=== PATIENT | male | born 1980 | race Caucasian/White ===

== ENCOUNTER 2017-07-19 01:59 | Emergency (ER) | payer SELFPAY ==
[2017-07-19] MEDS ORDERED: ASPIRIN 81 MG CHEWABLE TABLETS PO ONE (02:13)
--- NOTE | 2017-07-19 02:13 | PDOC ---
History of Present Illness - General History Source: Patient Exam Limitations: No Limitations - History of Present Illness Initial Comments: 07/19/17 02:31 Patient is a 36 year old male with no significant past medical history presenting to the ED with left sternal border chest pain beginning tonight. Patient reports chest pain woke him up from sleep tonight stating he has never felt anything like this before. He reports chest pain feels like a pressure on his chest. He states having SOB secondary to the chest pain. Denies radiation of pain, fever. Denies chills, nausea, vomiting. Denies smoking, excessive drinking. Denies any outside country travel. Denies any other symptoms. Social history: Family medical history; Mother- Hypercholesterolemia. <Ayaan Ricci - Last Filed: 07/19/17 05:52> - General History Source: Patient <Justo Garcia - Last Filed: 07/19/17 06:12> - General Stated Complaint: NUMBNESS TO ARM,LEG, CHEST PAIN Time Seen by Provider: 07/19/17 02:09 Past History <Ayaan Ricci - Last Filed: 07/19/17 05:52> <Justo Garcia - Last Filed: 07/19/17 06:12> - Past Medical History Allergies/Adverse Reactions: Allergies Allergy/AdvReac Type Severity Reaction Status Date / Time No Known Allergies Allergy Verified 07/19/17 02:20 Home Medications: Ambulatory Orders NK [No Known Home Medication] 07/19/17 Review of Systems - Review of Systems Able to Perform ROS?: Yes Comments:: 07/19/17 02:31 CONSTITUTIONAL: Absent: fever, no chills, no fatigue EYES: Absent: visual changes ENT: Absent: ear pain, no sore throat CARDIOVASCULAR:+Chest pain. No radiation. Absent: no palpitations RESPIRATORY: Absent: cough, no SOB GI: Absent: abdominal pain, no nausea, no vomiting, no constipation, no diarrhea GENITOURINARY: Absent: dysuria, no frequency, no hematuria MUSCULOSKELETAL: Absent: back pain, no arthralgia, no myalgia SKIN: Absent: rash All Other Systems: Reviewed and Negative <Ayaan Ricci - Last Filed: 07/19/17 05:52> *Physical Exam - Physical Exam Comments: 07/19/17 02:32 GENERAL: Mild Distress Well-appearing, well-nourished. No apparent distress. HEENT: Normocephalic, atraumatic. PERRL, EOM intact. CARDIOVASCULAR: Normal S1, S2. Regular rate and rhythm. PULMONARY: Clear to auscultation bilaterally. ABDOMEN: Soft, non-distended, non-tender. EXTREMITIES: Normal ROM in all four extremities. No gross deformities. SKIN: Warm, dry. No rash NEUROLOGICAL: No focal neurological deficits. <Ayaan Ricci - Last Filed: 07/19/17 05:52> Heart Score/ECG Review - ECG Intrepretation Comment:: 07/19/17 02:18 Normal Sinus Rhythm. Normal ECG. Normal sinus Rhythm. Early repolarization. Normal ECG <Ayaan Ricci - Last Filed: 07/19/17 05:52> ED Treatment Course - LABORATORY CBC & Chemistry Diagram: 07/19/17 02:17 07/19/17 02:17 <Ayaan Ricci - Last Filed: 07/19/17 05:52> - LABORATORY CBC & Chemistry Diagram: 07/19/17 02:17 07/19/17 02:17 <Justo Garcia - Last Filed: 07/19/17 06:12> Medical Decision Making - Medical Decision Making 07/19/17 06:11 Dr. Garcia: The scribe's documentation has been prepared under my direction and personally reviewed by me in its entirery. I confirm that the note above accurately reflects all work, treatment, procedures, and medical decision making performed by me. Cardiac enzymes 2 are negative. We'll discharge patient. <Justo Garcia - Last Filed: 07/19/17 06:12> *DC/Admit/Observation/Transfer - Attestations Scribe Attestion: 07/19/17 02:19 Documentation prepared by Ayaan Ricci, acting as medical assistant supervisor for Justo Garcia MD. <Ayaan Ricci - Last Filed: 07/19/17 05:52> - Discharge Dispostion Admit: No <Justo Garcia - Last Filed: 07/19/17 06:12> Diagnosis at time of Disposition: Chest pain Qualifiers: Chest pain type: unspecified Qualified Code(s): R07.9 - Chest pain, unspecified - Discharge Dispostion Disposition: HOME Condition at time of disposition: Stable - Referrals Referrals: Mily Salomon MD [Staff Physician] - Jon Blankenship MD [Staff Physician] - - Patient Instructions Printed Discharge Instructions: DI for Chest Pain Print Language: CHINESE - Post Discharge Activity Work/School Note: Back to Work
[2017-07-19 02:27] LABS: BASOPHIL 0.8 % (0-2.0); EOSINOPHIL 3.3 % (0-4.5); MCH 31.9 pg (25.7-33.7); MCHC 33.9 g/dl (32.0-35.9); MEAN CELL VOLUME 94.1 fl (80-96); MEAN PLT VOLUME 8.1 fl (7.5-11.1); NEUTROPHILS 42.8 % (42.8-82.8); PLATELET COUNT 255 K/MM3 (134-434); RDW 12.6 % (11.9-15.9); WHITE BLOOD COUNT 9.1 K/mm3 (4.0-10.0)
[2017-07-19 02:37] LABS: INR 1.01 (0.82-1.09); PROTHROMBIN TIME (PATIENT) 11.1 SEC (9.98-11.88)
[2017-07-19 02:46] LABS: ALBUMIN 4.3 g/dl (3.4-5.0); ANION GAP 10 (8-16); BILIRUBIN,TOTAL 0.2 mg/dL (0.2-1.0); CALCIUM 9.6 mg/dL (8.5-10.1); CO2 25 mmol/L (21-32); GLUCOSE,RANDOM 136 mg/dL (74-106); MAGNESIUM 2.1 mg/dL (1.8-2.4); SGOT/AST 16 U/L (15-37); SGPT/ALT 38 U/L (12-78); TOT PROT 7.3 g/dl (6.4-8.2)
[2017-07-19 02:49] LABS: ALK PHOS 94 U/L (45-117)
[2017-07-19 03:17] VITALS: BMI 29.0
[2017-07-19 03:27] LABS: CPK 133 IU/L (39-308); TROPONIN I < 0.02 ng/ml (0.00-0.05)
[2017-07-19 05:42] LABS: URINE APPEARANCE CLEAR; URINE BILIRUBIN NEGATIVE (NEGATIVE); URINE BLOOD NEGATIVE (NEGATIVE); URINE COLOR LTYELLOW; URINE GLUCOSE (UA) NEGATIVE (NEGATIVE); URINE KETONE NEGATIVE (NEGATIVE); URINE LEUK ESTERASE NEGATIVE (NEGATIVE); URINE NITRITE NEGATIVE (NEGATIVE); URINE PROTEIN NEGATIVE (NEGATIVE); URINE UROBILINOGEN NEGATIVE mg/dL (0.2-1.0)
[2017-07-19 05:55] VITALS: BP 133/81; PULSE 82; TEMP 98.1
[2017-07-19 06:08] LABS: CPK 112 IU/L (39-308); TROPONIN I < 0.02 ng/ml (0.00-0.05)
--- NOTE | 2017-07-19 12:16 | EKG ---
Test Reason : Blood Pressure : / mmHG Vent. Rate : 060 BPM Atrial Rate : 060 BPM P-R Int : 172 ms QRS Dur : 092 ms QT Int : 402 ms P-R-T Axes : 062 007 018 degrees QTc Int : 402 ms NORMAL SINUS RHYTHM EARLY REPOLARIZATION NORMAL ECG WHEN COMPARED WITH ECG OF 19-JUL-2017 02:14, NO SIGNIFICANT CHANGE WAS FOUND Confirmed by JUSTIN TOM MD ([id number]) on 07/19/2017 12:16:07 PM Referred By: Confirmed By:JUSTIN TOM MD
--- NOTE | 2017-07-19 12:17 | EKG ---
Test Reason : Blood Pressure : / mmHG Vent. Rate : 081 BPM Atrial Rate : 081 BPM P-R Int : 160 ms QRS Dur : 082 ms QT Int : 368 ms P-R-T Axes : 063 007 023 degrees QTc Int : 427 ms NORMAL SINUS RHYTHM NORMAL ECG NO PREVIOUS ECGS AVAILABLE Confirmed by JUSTIN TOM MD ([id number]) on 07/19/2017 12:16:39 PM Referred By: Confirmed By:JUSTIN TOM MD
== END 2017-07-19 06:14 | disposition home or self-care (01) ==
LOC: JER 01:59
DX: R07.9 Chest pain, unspecified (principal)
CPT/HCPCS: 36415; 71010-TC; 80053; 81003; 83690; 83735; 83880; 84484; 85025; 85610; 93005; 93010; 99283-25

== ENCOUNTER 2019-04-12 21:33 | Emergency (ER) | payer SELFPAY | END 2019-04-12 22:47 | disposition home or self-care (01) | LOC: JERFT 21:33 ==